=== PATIENT | female | born 1975 | race Caucasian/White ===

== ENCOUNTER → 2023-12-06 06:55 | Outpatient (REF) | payer OTHER, SELFPAY | LOC: HWWDC 06:55 | PROVIDERS: ATTENDING PHYSICIAN Obstetrics & Gynecology; FAMILY PHYSICIAN Family Medicine | DX: Z12.31 Encounter for screening mammogram for malignant neoplasm of breast (principal) | CPT/HCPCS: 77063; 77067 ==

== ENCOUNTER → 2024-09-16 07:23 | Outpatient (REF) | payer OTHER, SELFPAY | LOC: HWRAD 07:23 | PROVIDERS: ATTENDING PHYSICIAN Internal Medicine Endocrinology, Diabetes & Metabolism; FAMILY PHYSICIAN Family Medicine | DX: E04.2 Nontoxic multinodular goiter (principal) | CPT/HCPCS: 76536 ==

== ENCOUNTER → 2024-12-09 07:23 | Outpatient (REF) | payer OTHER, SELFPAY | LOC: HWWDC 07:23 | PROVIDERS: ATTENDING PHYSICIAN Obstetrics & Gynecology; FAMILY PHYSICIAN Family Medicine | DX: Z12.31 Encounter for screening mammogram for malignant neoplasm of breast (principal) | CPT/HCPCS: 77063; 77067 ==